=== PATIENT | male | born 1965 | race Caucasian/White ===

== ENCOUNTER → 2019-01-06 | Outpatient (REF) | payer OTHER ==
[~2019-01-06] MED LIST: ATOR20TA65 PO; CYCL10TA29 PO; FLUO-202 PO; LAN30PT PO; LISI5TAB25 PO; METO25TA23 PO; OMEG-11 PO; OMEP40CA48 PO; PANT20TA27 PO; PANT40TA65 PO; TAMS0.4C70 PO; TRIA15CR40 TP; TRILI135PT GT
[2019-01-06 10:02] LABS: PLATELET COUNT, AUTOMATED 241 K/uL (150-450)
[2019-01-06 10:35] LABS: LDL CHOLESTEROL 92 mg/dl
== END ==
LOC: ZZSTITCHES 09:48
PROVIDERS: ATTEND Physician Assistant
DX: Z00.00 Encounter for general adult medical examination without abnormal findings (principal); R53.83 Other fatigue
CPT/HCPCS: 82040; 82247; 82310; 82374; 82435; 82465; 82565; 82947; 83718; 84075; 84132; 84153; 84155; 84295; 84403; 84450; 84460; 84478; 84520; 85025